=== PATIENT | female | born 1995 | race Caucasian/White ===

== ENCOUNTER 2020-03-02 14:19 | Emergency (ER) | payer BC ==
[2020-03-02] MEDS ORDERED: Morphine 4 MG/ML VIAL ONE (15:07)
[2020-03-02] MEDS ORDERED: Ondansetron PF 4 MG/2 ML Vial ONE ×2 (15:08→17:08)
[2020-03-02 15:18] LABS: #Eosinphils 0.1 thou/uL (0.0-0.7); #Monocytes 0.5 thou/uL (0.11-0.59); #Neutrophils 3.6 thou/uL (1.40-6.50); %Basophils 0.5 % (0.0-1.0); %Eosinophils 0.9 % (0.0-10.0); %Lymphocytes 32.6 % (21.0-51.0); %Monocytes 7.9 % (0.0-10.0); %Neutrophils 58.1 % (42.0-75.0); Hemoglobin 10.8 g/dL (12.0-16.0); Mean Corpuscular HGB CONC 33.8 g/dL (32.0-36.0); Mean Corpuscular Hemoglobin 29.8 pg (27.0-31.0); Mean Corpuscular Volume 88.2 fL (78.0-98.0); Mean Platelet Volume 7.4 fL (7.4-10.4); Platelet Count 202 thou/uL (130-400); RBC Distribution Width 12.9 % (11.5-14.5); Red Blood Cell (RBC) Count 3.63 mill/uL (4.20-5.40); White Blood Cell (WBC) Count 6.3 thou/uL (4.8-10.8)
--- NOTE | 2020-03-02 16:22 | ULT ---
EXAM: OB ultrasound COMPARISON: None HISTORY: 15 week gestation. Patient is complaining of lower abdominal and vaginal cramping for 5 days. No blee ding. TECHNIQUE: Multiplanar grayscale and color Doppler transabdominal sonographic images are obtained. FINDINGS: There is evidence of a single intrauterine gestation. Cardiac Doppler demonstrates he art tones with a heart rate of 144 beats per minute. The placenta is located anteriorly. Subjectively, there is a normal amount of amniotic fluid. The cervix is difficult to delineate but me asures approximately 4 cm in length. biometry measurements: BPD 2.86 cm -- 15 weeks 1 day HC 11.45 cm -- 15 weeks 4 days AC 8.72 cm -- 15 weeks FL 1.68 cm -- 15 weeks The estimated gestational age by ultrasound is 15 weeks with an ANCA on08/24/2020. Gestational age by t he last menstrual period is 15 weeks 2 days. There are no findings to suggest a subchorionic hemorrhage based on this exam. anatomical struc tures unable to be evaluated on this exam due to very early intrauterine gestational age IMPRESSION: 1. Single intrauterine gestation with heart tones documented. Estimated gestational age by ultr asound is 15 weeks.
[2020-03-02 17:00] LABS: ALT (SGPT) 15 U/L (8-55); AST (SGOT) 18 U/L (5-34); Albumin 3.5 g/dL (3.5-5.0); Alkaline Phosphatase 63 U/L (40-110); Anion Gap 12 mmol/L (10-20); BUN (Urea Nitrogen) 16 mg/dL (7.0-18.7); Bilirubin, Total 0.2 mg/dL (0.2-1.2); Calc. Creatinine Clearance 0 mL/min (70-130); Calcium 8.9 mg/dL (7.8-10.44); Carbon Dioxide 22 mmol/L (22-29); Chloride 105 mmol/L (98-107); Estimated GFR-MDRD Greater than 90; Globulin 3.5 g/dL (2.4-3.5); Glucose 76 mg/dL (70-105); Potassium 3.9 mmol/L (3.5-5.1); Sodium 135 mmol/L (136-145)
[2020-03-02 17:46] LABS: Bilirubin Negative (Negative); Blood, Urine Negative (Negative); Clarity Turbid (Clear); Glucose, Urine (Dipstick) Normal (Negative); Leukocyte Negative Leu/uL (Negative); Nitrite Negative (Negative); Protein, Urine (Dipstick) Negative (Neg-Trace); Urobilinogen Normal mg/dL (Less than 2)
== END 2020-03-02 18:16 | disposition home or self-care (01) ==
LOC: ERS 14:19
DX: O26.892 Other specified pregnancy related conditions, second trimester (principal); R10.9 Unspecified abdominal pain; Z3A.15 15 weeks gestation of pregnancy
CPT/HCPCS: 76815; 80053; 81003; 84702; 85025; 86900; 86901; 96374; 96375; 96376; J2270; J2405